=== PATIENT | female | born 1985 | race Caucasian/White ===

== ENCOUNTER 2021-05-22 11:40 | Emergency (ER) | payer OTHER, SELFPAY ==
--- NOTE | ~2021-05-22 | XR_ITS ---
EXAMINATION: XR CHEST CLINICAL INFORMATION: Cough, shortness of breath, and back pain COMPARISON: 10/15/2015 TECHNIQUE: 2 views of the chest were obtained. FINDINGS: Surgical clips over the left medial chest. Normal cardiomediastinal silhouette. Adequate expansion of the lungs. Unchanged chronic blunting of the left costophrenic angle. No acute osseous abnormality. XR/XR chest 2V IMPRESSION: No acute disease within the chest.
[2021-05-22 12:13] VITALS: BP 122/81; PULSE 98; RESP 18; TEMP 36.6; O2SAT 98; BMI 29.9
--- NOTE | 2021-05-22 12:39 | ED.URI ---
HPI - URI/Sore Throat General Chief Complaint: Upper Respiratory Symptoms Stated Complaint: sob, headache, fever, body ache Time Seen by Provider: 05/22/21 12:26 Source: patient Mode of arrival: ambulatory Limitations: no limitations History of Present Illness MD elicited complaint: fever, cough, nasal congestion and sinus pain Pertinent past history: sinusitis Onset (ago): day(s) (6) Consistency: progressively worsening Severity: moderate Description of mucous: yellow Able to tolerate fluids by mouth: Yes Relieving factors: OTC cold medicine Context: other(s) with similar symptoms (daughter was sick tested negative for FLU and COVID) Associated symptoms: fever, nasal congestion and cough Treatments prior to arrival: cold medicine Related Data Previous Rx's Medication Instructions Recorded azithromycin 250 mg tablet See Rx Instructions .ROUTE 05/22/21 .COMPLEX #6 tab fluticasone propionate 50 1 spray INTRANASAL DAILY PRN #16 g 05/22/21 mcg/actuation nasal spray,suspension Allergies Allergy/AdvReac Type Severity Reaction Status Date / Time hydrocortisone Allergy Unknown skin rash, Unverified 04/02/20 16:26 [HYDROCORTISONE] rash lidocaine [Xylocaine] Allergy Unknown rash Verified 06/17/13 00:00 From [facility] Allergy Unknown skin rash Uncoded 04/02/20 16:26 Review of Systems Review of Systems: Constitutional :pos Fever, No Chills ENT/Mouth : No sore throat, No Rhinorrhea, pos sinus pain, pos nasal congestion Eyes: No Eye Pain, No Swelling, No Redness Cardiovascular : No Chest Pain, No SOB Respiratory : pos Cough, pos Sputum, No Wheezing Gastrointestinal : No Nausea, No Vomiting, No Diarrhea Genitourinary : No Dysuria, No Urinary Frequency, No Hematuria, Musculoskeletal : No joint pain, No Myalgias, No Joint Swelling, pos back pain Skin : No Skin Lesions, No rash Neuro : No Weakness, No Numbness, No Dizziness, No Headache PMFSH Past Medical History Attestation statement: The following information was validated with the patient. Medical History Herpes Surgical History (Updated 05/22/21 @ 12:16 by Thiago Ayala) History of thoracic surgery Social History Social History (Updated 05/22/21 @ 12:55 by Radha Kwon DO) Patient Tobacco Use Status: Never used Tobacco Advance Directives: No Patient : No Physical Exam Vital Signs: Vital Signs: Last Vital Signs Temp 98 F 05/22/21 12:13 Pulse 98 05/22/21 12:13 Resp 18 05/22/21 12:13 BP 122/81 05/22/21 12:13 Pulse Ox 98 05/22/21 12:13 Body Mass Index 29.9 Appearance: Alert. Oriented X3. No acute distress. Eyes: Pupils equal, round and reactive to light. ENT: Pharynx normal. bilateral maxillary sinus ttp , R ear mild AOM Neck: Normal inspection. Neck supple. CVS: Normal heart rate and rhythm. Pulses normal. Respiratory: No respiratory distress. Breath sounds normal. Abdomen: Soft and non-tender. Skin: Skin warm and dry. Normal skin color. Extremities: No lower extremity edema. Neuro: Oriented X 3. No motor deficit. No sensory deficit. Course Course Course Narrative: wants to leave prior to CXR result MDM - URI/Sore Throat MDM Narrative Medical decision making narrative: 35 yo female with hx of sinusitis here with c/o sinus pain/congestion - fevers, back pain - at this time will need UA/CXR, COVID swab suspect sinusitis - dispo per results and findings. Lab Data Labs: Lab Results 05/22/21 05/22/21 05/22/21 Range/Units 12:54 12:58 12:58 Urine Color YELLOW Urine Appearance CLEAR Urine pH 6.0 (5.0-8.0) Ur Specific Jackson 1.010 (1.005-1.025) Urine Protein NEG (NEG-TRACE) MG/DL Urine Glucose (UA) NEG (NEG) MG/DL Urine Ketones NEG (NEG) MG/DL Urine Blood NEG (NEG) Urine Nitrite NEG (NEG) Ur Leukocyte Esterase NEG (NEG) Urine Test NEGATIVE (NEGATIVE) COVID-19 ([facility]) Negative (Negative) COVID-19 Clin Com See Note Discharge Plan Discharge Clinical Impression: Sinusitis Qualifiers: Sinusitis location: maxillary Chronicity: acute Recurrence: non-recurrent Qualified Code(s): J01.00 - Acute maxillary sinusitis, unspecified Otitis media Qualifiers: Otitis media type: suppurative Chronicity: acute Laterality: right Recurrence: non-recurrent Spontaneous tympanic membrane rupture: without spontaneous rupture Qualified Code(s): H66.001 - Acute suppurative otitis media without spontaneous rupture of ear drum, right ear Patient Disposition: Home, Self-Care Instructions: Sinusitis (ED), Ear Infection (ED) Additional Instructions: return to ED for any worsening symptoms or concerns NEGATIVE COVID TEST Prescriptions: New azithromycin 250 mg tablet See Rx Instructions .ROUTE .COMPLEX Qty: 6 RF: 0 fluticasone propionate 50 mcg/actuation spray,suspension 1 spray intranasal DAILY PRN (Reason: nasal congestion) Qty: 16 RF: 0 Stand Alone Forms: Work/School Release Discharge Date/Time: 05/22/21 14:12
[2021-05-22 13:08] LABS: Appearance Urine CLEAR; Color Urine YELLOW; Glucose Urine UA NEG (NEG); Leukocyte Esterase Urine NEG (NEG); Nitrite Urine NEG (NEG); Urine Blood NEG (NEG); Urine Ketones NEG (NEG); Urine Protein NEG (NEG-TRACE)
[2021-05-22 13:09] LABS: UPreg QC Valid YES; Urine Pregnancy NEGATIVE (NEGATIVE)
[2021-05-22 13:17] LABS: IDNOW Serial# 9DD0AD1C
[2021-05-22 13:18] LABS: COVID-19 Test Negative (Negative)
== END 2021-05-22 14:12 | disposition home or self-care (01) ==
PROVIDERS: Emergency Provider Emergency Medicine; PCP Internal Medicine
DX: J01.00 Acute maxillary sinusitis, unspecified (principal); H66.001 Acute suppurative otitis media without spontaneous rupture of ear drum, right ear; R06.02 Shortness of breath; R05.9 Cough, unspecified; R50.9 Fever, unspecified; Z20.822 Contact with and (suspected) exposure to COVID-19; Z79.899 Other long term (current) drug therapy
CPT/HCPCS: 36415; 71046; 81003; 81025; 87635; 99283

== ENCOUNTER 2022-07-19 14:13 | Emergency (ER) | payer OTHER, SELFPAY ==
[2022-07-19 15:35] VITALS: BP 137/75; PULSE 71; RESP 18; TEMP 36.7; O2SAT 98; BMI 36.0
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
== END 2022-07-19 15:57 | disposition home or self-care (01) ==
PROVIDERS: Emergency Provider Emergency Medicine; PCP Internal Medicine
DX: S06.0XAA Concussion with loss of consciousness status unknown, initial encounter (principal); V43.52XA Car driver injured in collision with other type car in traffic accident, initial encounter; M79.10 Myalgia, unspecified site; Y93.89 Activity, other specified; Y92.414 Local residential or business street as the place of occurrence of the external cause; Y99.9 Unspecified external cause status
CPT/HCPCS: 99282; 99283

== ENCOUNTER 2022-07-20 11:14 | Emergency (ER) | payer OTHER, SELFPAY ==
[2022-07-20 12:00] VITALS: BP 113/65; PULSE 71; RESP 18; O2SAT 98; BMI 36.0
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
== END 2022-07-20 12:25 | disposition home or self-care (01) ==
PROVIDERS: Emergency Provider Emergency Medicine Emergency Medical Services; PCP Internal Medicine
DX: Z02.79 Encounter for issue of other medical certificate (principal); Z04.1 Encounter for examination and observation following transport accident; M79.10 Myalgia, unspecified site
CPT/HCPCS: 99282